=== PATIENT | male | born 1970 | race Caucasian/White ===

== ENCOUNTER 2019-12-13 14:38 | Emergency (ER) | payer MEDICAID ==
[~2019-12-13] VITALS: Ht 172.7 cm; Wt 77.1 kg
[2019-12-13 14:50] VITALS: Ht 172.7 cm; Wt 77.1 kg
[2019-12-13 17:36] VITALS: BP 125/77
== END 2019-12-13 17:36 | disposition home or self-care (01) ==
LOC: ED 14:38
DX: S22.32XA Fracture of one rib, left side, initial encounter for closed fracture (principal); S50.02XA Contusion of left elbow, initial encounter; M25.512 Pain in left shoulder; R51.9 Headache, unspecified; V48.5XXA Car driver injured in noncollision transport accident in traffic accident, initial encounter; Y93.I9 Activity, other involving external motion; Y92.488 Other paved roadways as the place of occurrence of the external cause; Y99.8 Other external cause status
CPT/HCPCS: J1885